=== PATIENT | male | born 1970 | race Caucasian/White ===

== ENCOUNTER 2018-10-28 20:26 | Emergency (ER) | payer OTHER ==
[2018-10-28 20:31] VITALS: BP 128/77; PULSE 72; TEMP 97.2; BMI 26.6
--- NOTE | 2018-10-28 20:31 | PDOC ---
Rapid Medical Evaluation Time Seen by Provider: 10/28/18 20:28 Medical Evaluation: 10/28/18 20:28 10/28/18 20:17 I have performed a brief in-person evaluation of this patient. The patient presents with a chief complaint of: L wrist injury. Elevator door closed on wrist tonight Pertinent physical exam findings:Well donavon and in NAD, dressing in place to L wrist I have ordered the following:XR The patient will proceed to the ED for further evaluation Discharge Disposition - Diagnosis Abrasion of wrist Qualifiers: Encounter type: initial encounter Laterality: left Qualified Code(s): S60.812A - Abrasion of left wrist, initial encounter - Referrals - Patient Instructions - Post Discharge Activity
--- NOTE | 2018-10-28 21:17 | PDOC ---
History of Present Illness - General Chief Complaint: Injury Stated Complaint: JOB INJURY Time Seen by Provider: 10/28/18 20:28 - History of Present Illness Initial Comments: 10/28/18 21:10 Now comorbidities presents for evaluation of left wrist pain. He states his wrist was caught an elevated door as it was closing. He does have a prior fractured left wrist about 4 years ago and then once before that as a child Past History - Past Medical History Allergies/Adverse Reactions: Allergies Allergy/AdvReac Type Severity Reaction Status Date / Time No Known Allergies Allergy Verified 10/28/18 20:31 Home Medications: Ambulatory Orders NK [No Known Home Medication] 10/28/18 COPD: No - Suicide/Smoking/Psychosocial Hx Smoking History: Never smoked Have you smoked in the past 12 months: No Information on smoking cessation initiated: No Hx Alcohol Use: No Drug/Substance Use Hx: No Review of Systems - Review of Systems Musculoskeletal: Yes: Joint Pain *Physical Exam - Vital Signs Last Vital Signs Temp Pulse Resp BP Pulse Ox 97.2 F L 72 18 128/77 100 10/28/18 20:29 10/28/18 20:29 10/28/18 20:29 10/28/18 20:29 10/28/18 20:29 - Physical Exam Comments: 10/28/18 21:11 Left first skin color and temperature are normal range of motion is full. There is no tenderness about the radial ulnar styloid TFCC or scaphoid. Mild tenderness over the lateral aspect of the distal radius. 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 Moderate Sedation - Procedure Monitoring Vital Signs: Procedure Monitoring Vital Signs Temperature 97.2 F L 10/28/18 20:29 Pulse Rate 72 10/28/18 20:29 Respiratory Rate 18 10/28/18 20:29 Blood Pressure 128/77 10/28/18 20:29 O2 Sat by Pulse Oximetry (%) 100 10/28/18 20:29 *DC/Admit/Observation/Transfer Diagnosis at time of Disposition: Crush injury, wrist Diagnosis at time of Disposition: (Ruled Out): Abrasion of wrist - Discharge Dispostion Disposition: HOME Condition at time of disposition: Stable Decision to Admit order: No - Referrals Referrals: Peter Rivero MD [Staff Physician] - - Patient Instructions Printed Discharge Instructions: DI for Crush Injury Additional Instructions: Return to the emergency room should symptoms worsen or go unresolved. May use the wrist immobilizer for cough or remove it while at home to do gentle range of motion of the wrist he may continue with ice Tylenol and Motrin as directed follow-up with orthopedic surgery in 2-3 days for further evaluation and treatment options - Post Discharge Activity
== END 2018-10-28 21:20 | disposition home or self-care (01) ==
LOC: JERFT 20:26
PROC: 2W3DX1Z Immobilization of Left Lower Arm using Splint (ICD-10-PCS; principal; 2018-10-28)
DX: S67.32XA Crushing injury of left wrist, initial encounter (principal); X58.XXXA Exposure to other specified factors, initial encounter; Y93.89 Activity, other specified; Y92.238 Other place in hospital as the place of occurrence of the external cause; Y99.0 Civilian activity done for income or pay
CPT/HCPCS: 73110-TC-LR-FY; 73130-TC-LT-FY; 99281-25

== ENCOUNTER 2020-01-05 13:19 | Emergency (ER) | payer OTHER ==
[2020-01-05 13:27] VITALS: BP 127/83; PULSE 75; TEMP 98; BMI 28.2
--- NOTE | 2020-01-05 15:09 | PDOC ---
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 Denies weakness, numbness, tingling to upper extremities, chest pain, abdominal pain, head injury or any other complaints. Took 400 mg of ibuprofen approximately 2 hours ago. Patient had one session with a chiropractor last week, planning for a second session this week. He has had physical therapy approximately 60 sessions without much improvement, has seen pain management and has a data management specialist. ROS: As above PE: GENERAL: well-appearing, NAD HEAD: NCAT EYES: Pupils equal, round and reactive to light, sclera anicteric, conjunctiva clear ENT: pharynx: no erythema, no exudate, uvula midline NECK: supple CHEST: nontender RESP: clear, no w/r/r CARDIO: rrr, no m/g/r ABD: +BS, soft, nontender, non distended BACK: no midline spinal ttp, T4 -T7 spinal tenderness to palpation, no CVAT EXTREMITIES: Normal range of motion, 5/5 strength and sensation, no edema NEUROLOGICAL: Normal speech, normal gait SKIN: Warm, Dry 01/05/20 15:06 01/05/20 15:09 Is this a multiple visit Asthma Patient?: No Past History - Past Medical History Allergies/Adverse Reactions: Allergies Allergy/AdvReac Type Severity Reaction Status Date / Time No Known Allergies Allergy Verified 01/05/20 13:25 Home Medications: Ambulatory Orders Ibuprofen 600 mg PO Q6H #20 tablet 01/05/20 COPD: No - Psycho Social/Smoking Cessation Hx Smoking History: Never smoked Have you smoked in the past 12 months: No Hx Alcohol Use: No Drug/Substance Use Hx: No *Physical Exam - Vital Signs Last Vital Signs Temp Pulse Resp BP Pulse Ox 98.0 F 75 16 127/83 100 01/05/20 13:25 01/05/20 13:25 01/05/20 13:25 01/05/20 13:25 01/05/20 13:25 Medical Decision Making - Medical Decision Making 01/05/20 15:07 49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 Denies weakness, numbness, tingling of upper extremities or any other complaint. Took 400mg ibuprofen approximately 2 hours ago. P.o. ibuprofen 400 mg x 1 dose Follow-up with your doctor this week Note for work provided Discharge - Discharge Information Problems reviewed: Yes Clinical Impression/Diagnosis: Upper back pain Condition: Stable Disposition: HOME - Admission No - Additional Discharge Information Prescriptions: Ibuprofen 600 mg PO Q6H #20 tablet - Follow up/Referral - Patient Discharge Instructions Additional Instructions: Follow-up with your data management specialist and primary care doctor within 1 week Take ibuprofen 600 mg every 6 hours as needed for pain Note for work provided - Post Discharge Activity Work/Back to School Note: Back to Work
== END 2020-01-05 15:12 | disposition home or self-care (01) ==
LOC: JERFT 13:19
DX: M54.89 Other dorsalgia (principal)
CPT/HCPCS: 99283-25

== ENCOUNTER 2021-01-31 17:30 | Emergency (ER) | payer OTHER ==
[2021-01-31 17:42] VITALS: BP 163/94; PULSE 75; BMI 29.0
[2021-01-31 18:09] VITALS: TEMP 98.7
== END 2021-01-31 19:20 | disposition home or self-care (01) ==
LOC: FER 17:30
DX: F41.0 Panic disorder [episodic paroxysmal anxiety] (principal)
CPT/HCPCS: 71046-TC-FY; 93005; 99284-25

== ENCOUNTER 2021-03-30 13:08 | Emergency (ER) | payer BC, OTHER ==
[2021-03-30 13:53] VITALS: TEMP 97.4; BMI 29.8
[2021-03-30 14:26] VITALS: BP 142/83; PULSE 82
== END 2021-03-30 15:20 | disposition home or self-care (01) ==
LOC: JER 13:08
DX: F41.0 Panic disorder [episodic paroxysmal anxiety] (principal)
CPT/HCPCS: 99283-25

== ENCOUNTER 2022-07-28 06:09 | Day surgery (SDC) | payer OTHER ==
[2022-07-25 13:41] VITALS: BMI 28.1
[2022-07-28] MEDS ORDERED: MIDAZOLAM HCL 2 MG/2 ML SINGLE DOSE VIAL ONE (07:23)
[2022-07-28] MEDS ORDERED: LIDOCAINE HCL 2% 100 MG/5 ML DISP.SYRIN ONE (07:23)
[2022-07-28] MEDS ORDERED: PROPOFOL 100 ML ONE (07:23)
[2022-07-28] MEDS ORDERED: BUPIVACAINE HCL/EPINEPHRINE/PF 30 ML VIAL IJ ONE (07:26)
[2022-07-28] MEDS ORDERED: EPINEPHrine 1:1,000 1,000 MCG/ML ML ONE (07:35)
[2022-07-28] MEDS ORDERED: ROPIVACAINE HCL/PF 100 MG/20 ML VIAL ONE (07:37)
[2022-07-28] MEDS ORDERED: DEXAMETHASONE SOD PHOSPHATE 4 MG/1 ML VIAL ONE (08:34)
[2022-07-28] MEDS ORDERED: ceFAZolin SODIUM 1 GM VIAL ONE (08:34)
[2022-07-28] MEDS ORDERED: hydrALAZINE HCL 20 MG/ML VIAL ONE (09:38)
[2022-07-28] MEDS ORDERED: PROPOFOL 40 ML ONE (09:40)
[2022-07-28] MEDS ORDERED: KETOROLAC TROMETHAMINE 30 MG/1 ML VIAL ONE (10:13)
[2022-07-28] MEDS ORDERED: ONDANSETRON 4 MG/2 ML VIAL ONE (10:13)
[2022-07-28] MEDS ORDERED: ACETAMINOPHEN 1000 MG/100 ML BAG IVPB ONE (10:42)
[2022-07-28] MEDS ORDERED: oxyCODONE HCL 5 MG TABLET PO PRN ×2 (10:42)
[2022-07-28] MEDS ORDERED: ONDANSETRON 4 MG/2 ML VIAL IVPUSH PRN (10:42)
[2022-07-28] MEDS ORDERED: PROMETHAZINE HCL 25 MG/1 ML VIAL IVPUSH PRN (10:42)
[2022-07-28] MEDS ORDERED: LACTATED RINGERS SOLUTION 1,000 ML IV SCH (10:45)
[2022-07-28] MEDS ORDERED: FENTANYL CITRATE/PF 50 MCG/ML VIAL ONE (10:47)
[2022-07-28 11:01] VITALS: TEMP 97.7
[2022-07-28 12:38] VITALS: RESP 18
[2022-07-28 12:40] VITALS: BP 138/70; PULSE 70
== END 2022-07-28 13:25 | disposition home or self-care (01) ==
LOC: FASU 06:09
PROVIDERS: ATTEND Orthopaedic Surgery
PROC: 0PBB4ZZ Excision of Left Clavicle, Percutaneous Endoscopic Approach (ICD-10-PCS; 2022-07-28)
PROC: 0RBK4ZZ Excision of Left Shoulder Joint, Percutaneous Endoscopic Approach (ICD-10-PCS; 2022-07-28)
PROC: 0LQ24ZZ Repair Left Shoulder Tendon, Percutaneous Endoscopic Approach (ICD-10-PCS; principal; 2022-07-28 08:53)
PROC: 0LS44ZZ Reposition Left Upper Arm Tendon, Percutaneous Endoscopic Approach (ICD-10-PCS; 2022-07-28 08:53)
PROC: 0RNK4ZZ Release Left Shoulder Joint, Percutaneous Endoscopic Approach (ICD-10-PCS; 2022-07-28 08:53)
DX: S46.012D Strain of muscle(s) and tendon(s) of the rotator cuff of left shoulder, subsequent encounter (principal); S43.432A Superior glenoid labrum lesion of left shoulder, initial encounter; M75.22 Bicipital tendinitis, left shoulder; M75.52 Bursitis of left shoulder; M65.822 Other synovitis and tenosynovitis, left upper arm; M19.012 Primary osteoarthritis, left shoulder; M75.02 Adhesive capsulitis of left shoulder; X58.XXXD Exposure to other specified factors, subsequent encounter; X58.XXXA Exposure to other specified factors, initial encounter; Y93.9 Activity, unspecified; Y92.9 Unspecified place or not applicable
CPT/HCPCS: 88304-TC; 94760; C1713